=== PATIENT | male | born 1980 | race Caucasian/White ===

== ENCOUNTER 2017-05-25 01:06 | Emergency (ER) | payer OTHER ==
[2017-05-25 01:10] VITALS: BP 132/80; PULSE 56; RESP 16; TEMP 98.2; O2SAT 97
--- NOTE | 2017-05-25 01:23 | EDPHY ---
H & P Stated Complaint: R INDEX FINGER INFECTION 3-4 DAYS Time Seen by Provider: 05/25/17 01:22 HPI/ROS: HPI: This is a 37-year-old male presents with Chief Complaint: R INDEX FINGER INFECTION 3-4 DAYS Location: Right index finger Quality: Infection Duration: 3-4 days Signs and Symptoms: No bleeding, no radiation, no numbness, no weakness, no tingling, no incontinence, no decreased range of motion, + swelling, + pain Timing: Worsening Severity: [id number] Context: Patient is right-hand dominant, up-to-date on immunizations, presents with complaints of tip of right index finger being infected. For the tip of his finger approximately 5 days ago. Since that time he has developed redness and swelling. The pain was so severe this evening that he came to the emergency room for further evaluation. He has tried nothing for the symptoms. No history of diabetes mellitus. No trauma/injury. Denies paresthesias/weakness/ decreased range of motion. no hx MRSA. Modifying Factors: None Comment: ROS: see HPI Constitutional: No fever, no chills, no weight loss Eyes: No blurred vision Respiratory: No shortness of breath, no cough Cardiovascular: No chest pain Gastrointestinal: No nausea, no vomiting no diarrhea Genitourinary: No dysuria Extremities: No myalgias Neurologic: No weakness, no numbness Skin: No rashes Hematologic: No bruising, no bleeding MEDICAL/SURGICAL/SOCIAL HISTORY: Medical history: Generally healthy. Does not take any regular medications. Surgical history: Denies Social history: Employed. . CONSTITUTIONAL: Pleasant adult white male, awake and alert, no obvious distress HEENT: Atraumatic and normocephalic, PERRL, EOMI. Tympanic membranes clear. Oropharynx clear, no exudate and moist pink mucosa. Airway patent. No lymphadenopathy. No meningismus. Cardiovascular: Normal S1/S2, regular rate, regular rhythm, without murmur rub or gallop. PULMONARY/CHEST: Symmetrical and nontender. Clear to auscultation bilaterally. Good air movement. No accessory muscle usage. ABDOMEN: Soft, nondistended, nontender, no rebound, no guarding, no peritoneal signs, no masses or organomegaly. No CVAT. EXTREMITIES: 2/2 radial pulses, strength 5/5, right index finger: Distal tip directly beneath fingernail shows fluctuant area with erythema; DIP/PIP/MCP joints good flexion/extension/light touch sensation. no deformities, no clubbing, no cyanosis or edema. NEUROLOGICAL: no focal neuro deficits. GCS 15. SKIN: Warm and dry, no erythema. no rash. Good capillary refill. Source: Patient Exam Limitations: No limitations - Personal History Current Tetanus/Diphtheria Vaccine: Yes Current Tetanus Diphtheria and Acellular Pertussis (TDAP): Yes - Medical/Surgical History Hx Asthma: No Hx Chronic Respiratory Disease: No Hx Diabetes: No Hx Cardiac Disease: No Hx Renal Disease: No Hx Cirrhosis: No Hx Alcoholism: No Hx HIV/AIDS: No Hx Splenectomy or Spleen Trauma: No Other PMH: DENIES - Social History Smoking Status: Never smoked Constitutional: Initial Vital Signs Temperature (C) 36.8 C 05/25/17 01:08 Heart Rate 56 L 05/25/17 01:08 Respiratory Rate 16 05/25/17 01:08 Blood Pressure 132/80 H 05/25/17 01:08 O2 Sat (%) 97 05/25/17 01:08 O2 Delivery Mode Room Air Allergies/Adverse Reactions: Sulfa (Sulfonamide Antibiotics) Allergy (Verified 05/25/17 01:10) Home Medications: Medication Instructions Recorded Clindamycin HCl [Clindamycin] 300 mg PO TID #21 cap 05/25/17 Medical Decision Making Procedures: Procedure: Abscess drainage. The patient's abscess was located on the right 2nd digit-distal aspect on tip. I obtained verbal consent from the patient to drain the abscess who was informed about the possibility of bleeding and pain. The abscess was incised with 27 gauge needle directly distal to the nail and 3 mL amount of purulent drainage was expressed. I irrigated the wound and placed a dressing. The patient tolerated the procedure well. The procedure was performed by myself. ED Course/Re-evaluation: No signs of neurovascular compromise/tenting of skin/compartment syndrome/ extremities and joints examined above and below area of concern and are neurovascularly intact. Wound care; 3 mls of purulent drainage; no foreign body identified Clindamycin given; clean sterile dressing applied. This patient was seen under the supervision of my secondary supervising physician. I evaluated care for this patient independently. Discussed this patient with Dr. Abbott who did not see the patient. Differential Diagnosis: Differential diagnosis includes but is not limited to abscess, paronychia, foreign body, cellulitis. - Data Points Medications Given: Discontinued Medications Clindamycin (Clindamycin) 300 mg PO EDNOW ONE PRN Reason: Protocol Stop: 05/25/17 01:42 Last Admin: 05/25/17 01:53 Dose: 300 mg Departure - Departure Disposition: Home, Routine, Self-Care Clinical Impression: Paronychia of right index finger Condition: Good Instructions: Paronychia (ED) Additional Instructions: Keep the dressing dry and in place for 48 hours. After 48 hours, you may remove the dressing; wash the site daily with mild soap and water; then pat dry. Take Tylenol 650 mg every 4 hours and/or Ibuprofen 600 mg every 8 hours with food as needed for pain. Take all of the antibiotic until complete. Referrals: [facility],. [Clinic] - As per Instructions Prescriptions: Clindamycin HCl [Clindamycin] 300 mg PO TID #21 cap
[2017-05-25] MEDS ORDERED: CLINDAMYCIN 150 MG CAP PO ONE (01:41)
== END 2017-05-25 02:18 | disposition home or self-care (01) ==
PROC: 0H9FXZZ Drainage of Right Hand Skin, External Approach (ICD-10-PCS; principal; 2017-05-25)
DX: L03.011 Cellulitis of right finger (principal)